=== PATIENT | female | born 1960 ===

== ENCOUNTER 2023-11-12 06:19 | Observation (INO) ==
[2023-11-12] MEDS ORDERED: ROPIVACAINE 5 MG/ML 30 ML BTL (0.5%) ONE ×2 (08:27→08:52)
[2023-11-12] MEDS ORDERED: Midazolam 5 mg/5 ml VIAL 1 mg/ml 5 ml VIAL (5 mg) ONE (08:27)
[2023-11-12] MEDS ORDERED: fentaNYL 100 mcg/2 ml 50 MCG/ML VIAL ONE ×2 (08:27→14:05)
[2023-11-12] MEDS ORDERED: Naloxone 0.4 mg VIAL 0.4 mg/ml 1 ml VIAL IV PRN (08:34)
[2023-11-12] MEDS ORDERED: Metoclopramide 5 MG/ML VIAL (10 mg) IV PRN (08:34)
[2023-11-12] MEDS ORDERED: Tranexamic Acid 1 GM/100ML BAG 2,000 MG/200 ML BAG IV ONE (08:35)
[2023-11-12] MEDS ORDERED: ceFAZolin 2 GM in NS PREMIX 2 GM/100 ML BAG IVPB ONE (08:35)
[2023-11-12] MEDS ORDERED: Famotidine IV 10 MG/ML 2 ml VIAL (20 mg) ONE (08:35)
[2023-11-12] MEDS ORDERED: Buffered Lidocaine 1% SYRIN 1 ml ONE (08:40)
[2023-11-12 08:53] LABS: Rapid COVID-19 Molecular Undetected (Undetected)
[2023-11-12] MEDS ORDERED: NS 0.45% 1000 ml BAG 1,000 ML IV SCH (09:00)
[2023-11-12] MEDS ORDERED: Propofol 10 MG/ML 20 ML BTL ONE (09:02)
[2023-11-12] MEDS ORDERED: Lidocaine 2% PF 5 ML VIAL ONE (09:02)
[2023-11-12] MEDS ORDERED: fentaNYL 250 mcg/5 ml 50 MCG/ML 5 ml VIAL (250 MCG) ONE (09:03)
[2023-11-12] MEDS ORDERED: Ondansetron 4 mg VIAL 2 MG/ML 2 ml VIAL IV PRN (09:16)
[2023-11-12] MEDS ORDERED: Ondansetron ODT 4 mg TAB 4 MG TAB PO PRN (09:16)
[2023-11-12] MEDS ORDERED: Lactulose 30 ml UDC PO PRN (09:16)
[2023-11-12] MEDS ORDERED: Magnesium Hydroxide LIQ 30 ML UDC PO PRN (09:16)
[2023-11-12] MEDS ORDERED: Calcium Carb (TUMS) 500 mg CHEW TAB PO PRN (09:16)
[2023-11-12] MEDS ORDERED: Morphine 2 MG/ML SYRINGE IV PRN (09:16)
[2023-11-12] MEDS ORDERED: Rocuronium 50 mg VIAL 10 mg/ml 5 ml VIAL (50 mg) ONE (09:20)
[2023-11-12] MEDS ORDERED: Scopolamine 1 mg/72hr PATCH ONE (09:30)
[2023-11-12] MEDS ORDERED: Levalbuterol HFA INHALER MDI ONE (09:30)
[2023-11-12] MEDS ORDERED: Ondansetron 4 mg VIAL 2 MG/ML 2 ml VIAL ONE ×2 (09:49→12:48)
[2023-11-12] MEDS ORDERED: Dexamethasone IV 4 MG/ML VIAL 1 ml VIAL ONE (09:49)
[2023-11-12] MEDS ORDERED: HYDROmorphone 0.5 MG/0.5 ML SYRINGE ONE (09:51)
[2023-11-12] MEDS ORDERED: ceFAZolin VIAL VIAL ONE (11:39)
[2023-11-12] MEDS: Ondansetron 4 mg VIAL 2 MG/ML 2 ml VIAL IV PRN (12:49)
[2023-11-12] MEDS: fentaNYL 100 mcg/2 ml 50 MCG/ML VIAL IV PRN (14:06)
[2023-11-12] MEDS: Lactated Ringers 1000 ml BAG 1,000 ML IV SCH ×2 (17:23→17:25)
[2023-11-12] MEDS: ceFAZolin 2 GM in NS PREMIX 2 GM/100 ML BAG IVPB SCH (18:08)
[2023-11-12] MEDS: Acetaminophen IV 1 GM/100ML 1,000 MG/100 ML BAG IV ONE (19:37)
[2023-11-12] MEDS: Buffered Lidocaine 1% SYRIN 1 ml INTRADERM ONE (19:38)
[2023-11-12] MEDS: Scopolamine 1 mg/72hr PATCH TRANSDERM ONE (19:53)
[2023-11-12] MEDS: Levalbuterol HFA INHALER MDI INH PRN (20:54)
[2023-11-12] MEDS: Magnesium Hydroxide LIQ 30 ML UDC PO SCH (20:56)
[2023-11-12] MEDS: PTO:Budesonide/Formote 80/4.5(NF) MDI INH SCH (22:09)
[2023-11-13 07:01] LABS: Anion Gap 11 mmol/L (2-16); Blood Urea Nitrogen 13 mg/dL (6-24); CO2 Carbon Dioxide 21 mmol/L (22-32); Calcium 8.4 mg/dL (8.6-10.3); Chloride 101 mmol/L (101-111); Creatinine, Serum 0.74 mg/dL (0.51-0.95); Glucose 109 mg/dL (70-100); Hematocrit 43.6 % (35-45); Hemoglobin 14.1 g/dL (11.5-14.3); Mean Platelet Volume 8.5 fL (7.5-11.2); Platelet Count 158 10^3/uL (150-450); Sodium 133 mmol/L (135-145)
[2023-11-13] MEDS: Calcium (OSCAL) 500 mg TAB PO SCH (08:40)
[2023-11-13] MEDS: CALCIUM PHOS DIBAS VITAMIN D3 PO SCH (08:40)
[2023-11-13] MEDS: Vitamin THERAPEUTIC TAB PO SCH (08:40)
[2023-11-13 09:24] LABS: Potassium, Whole Blood 4.6 mmol/L (3.4-4.5)
== END 2023-11-13 12:30 | disposition home or self-care (01) ==
LOC: SSU 06:19 → OR 06:19
PROVIDERS: ADMIT Orthopaedic Surgery Adult Reconstructive Orthopaedic Surgery; ATTEND Orthopaedic Surgery Adult Reconstructive Orthopaedic Surgery